=== PATIENT | female | born 1985 | race African-American/Black ===

== ENCOUNTER 2021-05-04 02:44 | Emergency (ER) | payer OTHER ==
[~2021-05-04] VITALS: Ht 180.3 cm; Wt 161.0 kg
--- NOTE | 2021-05-04 02:45 | NUR ---
Dr. Swartz at bedside for MSE.
[2021-05-04] MEDS ORDERED: ALBUTEROL SULFATE 2.5 MG/3 ML NEBU NEB ONE ×2 (03:00→04:15)
[2021-05-04] MEDS ORDERED: IV NORMAL SALINE 1000 ML BAG IV ONE (03:00)
[2021-05-04] MEDS ORDERED: IPRATROPIUM BROMIDE 0.5 MG/2.5 ML NEBU NEB ONE (03:00)
[2021-05-04] MEDS ORDERED: methylPREDNISolone SOD SUCC 40 MG/ML VIAL IV ONE (03:00)
[2021-05-04] MEDS ORDERED: IPRATROPIUM BROMIDE 0.5 MG/2.5 ML NEBU ONE (03:03)
[2021-05-04] MEDS ORDERED: ALBUTEROL SULFATE 2.5 MG/ 0.5 ML NEBU ONE ×2 (03:03→04:22)
--- NOTE | 2021-05-04 03:04 | NUR ---
Xray at bedside.
[2021-05-04 03:18] LABS: HEMATOCRIT 34.6 % (31.2-41.9); MEAN CORPUSCULAR HEMOGLOBIN 27.1 uug (24.7-32.8); MEAN CORPUSCULAR VOLUME 82.9 fL (75.5-95.3); PLATELET COUNT (AUTO) 461 K/uL (179-408)
[2021-05-04] MEDS ORDERED: methylPREDNISolone SOD SUCC 40 MG/ML VIAL ONE (03:18)
[2021-05-04 03:28] LABS: CREATININE 0.9 mg/dL (0.6-1.3); POTASSIUM 2.9 mmol/L (3.5-5.1)
[2021-05-04] MEDS ORDERED: MAGNESIUM SULFATE/D5W 100 ML ONE ×2 (03:49→03:55)
[2021-05-04] MEDS: MAGNESIUM SULFATE/D5W 100 ML IV SCH (03:55)
[2021-05-04] MEDS ORDERED: OXYCODONE/APAP 5-325 MG TABLET PO ONE (04:15)
[2021-05-04] MEDS ORDERED: ALBUTEROL SULFATE 2.5 MG/3 ML NEBU ONE (04:21)
[2021-05-04] MEDS ORDERED: OXYCODONE/APAP 5-325 MG TABLET ONE (04:24)
[2021-05-04] MEDS ORDERED: POTASSIUM BICARBONATE/CIT AC 25 MEQ TABLET.EFF PO ONE (04:45)
[2021-05-04] MEDS ORDERED: ALBU18HF2 INH (05:08)
[2021-05-04] MEDS ORDERED: PRED50TA PO (05:08)
[2021-05-04] MEDS ORDERED: ALBU2.5V13 NEB (05:08)
[2021-05-04] MEDS ORDERED: POTASSIUM BICARBONATE/CIT AC 25 MEQ TABLET.EFF ONE (05:15)
--- NOTE | 2021-05-04 05:26 | NUR ---
Patient discharged to home in stable condition. Written and verbal after care instructions given. Patient verbalizes understanding of instructions. Stressed follow up or return to ER for worsening s/s. Patient out of ER with steady gait, no acute signs of distress, VSS, all belongings taken, IV site discontinued, instructed not to drive, patient will uber home.
[2021-05-04 05:27] VITALS: BP 152/148
== END 2021-05-04 05:28 | disposition home or self-care (01) ==
LOC: ER 02:47
DX: J45.902 Unspecified asthma with status asthmaticus (principal); E83.42 Hypomagnesemia; E87.6 Hypokalemia; R94.31 Abnormal electrocardiogram [ECG] [EKG]; R00.0 Tachycardia, unspecified; E66.9 Obesity, unspecified; Z68.42 Body mass index [BMI] 45.0-49.9, adult
CPT/HCPCS: 36415; 71045; 80048; 83735; 85025; 93005; 94640 ×2; 96361; 96365; 96366; 96375; 99291; J2920; J3475 ×2; J7060; A4663; J3590; J7030